=== PATIENT | female | born 1985 | race Caucasian/White ===

== ENCOUNTER 2020-06-11 11:19 | Emergency (ER) | payer SELFPAY ==
[~2020-06-11] VITALS: Ht 157.5 cm; Wt 64.9 kg
--- NOTE | 2020-06-11 11:40 | NUR ---
THE PATIENT IS IN ER BED #1 FOR C/O PALPITATION, FEELING FAINT X 30MINS, PT APPEARS ANXIOUS. DENIES PAIN. IN ROOM AIR AND DENIES SOB. RESPIRATION REGULAR AND UNLABORED. WILL CONTINUE TO MONITOR THE PATIENT.
[2020-06-11] MEDS: IV NS 0.9% 1,000 ML BAG IV ONE (12:10)
[2020-06-11 12:13] LABS: BASOPHILS % (AUTO) 0.6 % (0.0-2.0); EOSINOPHILS % (AUTO) 0.4 % (0.0-6.0); HEMATOCRIT 38 % (33-45); HEMOGLOBIN 12.6 g/dL (11.5-14.8); LYMPHOCYTES # (AUTO) 1.1 /CMM (0.8-4.8); LYMPHOCYTES % (AUTO) 24.5 % (20.0-44.0); MEAN CORPUSCULAR HGB CONC 33 g/dl (31.0-36.0); MEAN CORPUSCULAR VOLUME 91 fL (82-100); MONOCYTES # (AUTO) 0.3 /CMM (0.1-1.30); MONOCYTES % (AUTO) 6.2 % (2.0-12.0); NEUTROPHILS % (AUTO) 68.3 % (43.0-81.0); PLATELET COUNT (AUTO) 248 /CMM (150-450); RED BLOOD CELL COUNT(AUTO) 4.23 MIL/uL (4.0-5.2); WHITE BLOOD COUNT (AUTO) 4.4 K/uL (4.3-11.0)
[2020-06-11 12:20] LABS: CALCIUM, SERUM 8.7 mg/dL (8.5-10.1); CREATININE 0.8 mg/dL (0.6-1.3); POTASSIUM 3.2 mmol/L (3.5-5.1)
[2020-06-11] MEDS ORDERED: PROP10TA10 PO (13:19)
[2020-06-11] MEDS ORDERED: PROPRANOLOL HCL 10 MG TABLET ONE (13:41)
[2020-06-11] MEDS: PROPRANOLOL HCL 10 MG TABLET PO SCH (13:42)
--- NOTE | 2020-06-11 13:45 | NUR ---
Patient discharged to home in stable condition. Written and verbal after care instructions given. Patient verbalizes understanding of instruction. The patient left ER in stable condition.
[2020-06-11 13:46] VITALS: BP 127/85
[2020-06-11] MEDS ORDERED: PROPRANOLOL HCL 10 MG TABLET PO SCH (21:00)
== END 2020-06-11 13:46 | disposition home or self-care (01) ==
LOC: ER 11:28
DX: R00.0 Tachycardia, unspecified (principal)
CPT/HCPCS: 36415; 71045; 80048; 84484; 85025; 93005 ×2; 96360; 99285; J7030